=== PATIENT | male | born 1980 | race Caucasian/White ===

== ENCOUNTER 2018-06-06 04:57 | Emergency (ER) | payer OTHER ==
[2018-06-06] MEDS ORDERED: Lidocaine 1% PF 5 ML VIAL ONE (05:21)
[2018-06-06] MEDS ORDERED: Ketorolac Tromethamine 30 MG/ML VIAL ONE (05:21)
[2018-06-06] MEDS ORDERED: PHENYLEPHRINE HCL FS SCH (05:30)
[2018-06-06] MEDS ORDERED: SODIUM CHLORIDE 0.9% FS SCH (05:30)
[2018-06-06 06:27] LABS: #Eosinphils 0.2 thou/uL (0.0-0.7); #Monocytes 0.8 thou/uL (0.11-0.59); #Neutrophils 2.8 thou/uL (1.40-6.50); %Basophils 0.4 % (0.0-1.0); %Lymphocytes 34.4 % (21.0-51.0); %Monocytes 13.6 % (0.0-10.0); %Neutrophils 48.6 % (42.0-75.0); Hemoglobin 12.7 g/dL (14.0-18.0); Mean Corpuscular HGB CONC 33.8 g/dL (32.0-36.0); Mean Corpuscular Hemoglobin 30.9 pg (27.0-31.0); Mean Corpuscular Volume 91.2 fL (78.0-98.0); Mean Platelet Volume 7.3 fL (7.4-10.4); Platelet Count 311 thou/uL (130-400); RBC Distribution Width 14.4 % (11.5-14.5); Red Blood Cell (RBC) Count 4.11 mill/uL (4.70-6.10); White Blood Cell (WBC) Count 5.8 thou/uL (4.8-10.8)
[2018-06-06] MEDS ORDERED: CEFAZOLIN 1 GM VIAL ONE (06:46)
[2018-06-06 06:49] LABS: Acetaminophen Less than 6.0 mcg/mL (10.0-30.0); Alcohol Less than 10 mg/dL (Less than 10); Salicylate Less than 8.0 mg/dL (15.0-30.0)
[2018-06-06 06:50] LABS: ALT (SGPT) 29 U/L (8-55); AST (SGOT) 14 U/L (5-34); Albumin 3.7 g/dL (3.5-5.0); Alkaline Phosphatase 53 U/L (40-150); Anion Gap 12 mmol/L (10-20); BUN (Urea Nitrogen) 19 mg/dL (8.9-20.6); Bilirubin, Total 0.3 mg/dL (0.2-1.2); Calc. Creatinine Clearance 0 mL/min (70-130); Calcium 8.5 mg/dL (7.8-10.44); Carbon Dioxide 27 mmol/L (22-29); Chloride 105 mmol/L (98-107); Estimated GFR-MDRD Greater than 90; Globulin 2.9 g/dL (2.4-3.5); Glucose 101 mg/dL (70-105); Potassium 3.9 mmol/L (3.5-5.1); Protein, Total 6.6 g/dL (6.0-8.3); Sodium 140 mmol/L (136-145)
[2018-06-06 07:11] LABS: HBCM Index 0.07 S/CO (0-0.79); HBSAg Index 0.25 S/CO (0-0.99); HIV (1/2) Antibody/Antigen Non-Reactive (NonReactive); Hep A IgM AB Non-Reactive (NonReactive); Hep A IgM S/CO 0.07 S/CO (0-0.79); Hep B Surf Ag Non-Reactive S/CO (NonReactive); Hep C IgG Ab Non-Reactive (NonReactive); Hep C Index 0.05 S/CO (0-0.79); Hepatitis B Core IGM Abs Non-Reactive (NonReactive)
[2018-06-06 07:19] LABS: Syphilis Antibody Nonreactive (Nonreactive); Syphilis Antibody Index 0.04 S/CO (<1.00 Non-Reactive)
[2018-06-06 08:52] LABS: Bilirubin Negative (Negative); Blood, Urine Negative (Negative); Clarity CLEAR (Clear); Glucose, Urine (Dipstick) Negative (Negative); Leukocyte Negative (Negative); Nitrite Negative (Negative); Protein, Urine (Dipstick) Negative (Neg-Trace); Specific Gravity, Urine 1.031 (1.002-1.036); pH, Urine 6.5 (5.0-9.0)
[2018-06-06 09:21] LABS: Amphetamine Not Detected (NotDetected); Cocaine Metabolite Screen Not Detected (NotDetected); Medtox Reader # READER 4; Methamphetamine Not Detected (NotDetected); Opiate Screen Detected (NotDetected); Phencyclidine (PCP) Not Detected (NotDetected); THC/Cannabinoid Screen Detected (NotDetected)
[2018-06-06 09:22] LABS: Barbiturates Screen Not Detected (NotDetected); Benzodiazepine Screen Detected (NotDetected); Medtox Control Line Valid? VALID (VALID); Methadone Not Detected (NotDetected); Oxycodone Screen Not Detected (NotDetected); Tricyclic Screen Detected (NotDetected)
--- NOTE | 2018-06-06 11:59 | CON ---
DATE OF CONSULTATION: 06/06/2018 REASON FOR CONSULT: Recurrent priapism medication induced. HISTORY OF PRESENT ILLNESS: Mr. Esqueda is a 35-year-old male whom I seen back in 2014 as he was on trazodone for history of bipolar disease, and had a painful ischemic priapism. He underwent local aspiration irrigation with phenylephrine with successful detumescence and was discharged home. I did provide a followup appointment, however, he no showed. He states that since that event, trazodone has been discontinued; however, he is on Seroquel. With Seroquel, he has had 1 prior episode of priapism which was reduced at [facility] in [place]. He comes in this evening due to 5 hour history of ischemic priapism that began at 1 :00 a.m. He states that this was after he took Seroquel. He is currently unemployed, presents with his . Denies obstructive urinary symptoms. He has a remote history of methamphetamine use, which he denies current recreational drug use. He denies prior history of impotence, penile curvature. He has been fully informed regarding possibility of penile curvature, impotence due to history of priapism. PAST MEDICAL HISTORY: 1. Bipolar. 2. Hypertension. 3. GERD. PAST SURGICAL HISTORY: 1. Cholecystectomy. 2. Multiple irrigation aspiration of ischemic priapism drug induced :3 times. PSYCHIATRIC: Bipolar. SOCIAL HISTORY: History of methamphetamine use in the remote past, history of tobacco abuse 1 pack per day. HOME MEDICATIONS: Include Seroquel 200 mg, lorazepam, gabapentin, atorvastatin , lisinopril, hydrochlorothiazide and Depakote. ALLERGIES: No known drug allergies. SOCIAL HISTORY: As above. Lives with his . PHYSICAL EXAMINATION: VITAL SIGNS: Stable. He is afebrile, and there is no evidence of hypertension. Blood pressure is around 120/60. GENERAL: He is in no acute distress. HEENT: Grossly unremarkable. HEART: Regular rate. LUNGS: Clear. ABDOMEN: Soft, nontender, nondistended. GENITOURINARY: Demonstrates circumcised phallus, glans are soft. Rigid tumescence which is painful for the patient. 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 I did not see any other lesions on the shaft or the parameatal region. RECTAL: Digital rectal exam is deferred. BEDSIDE PROCEDURE: The patient was formally prepped and draped. He has been fully informed regarding indications of aspiration irrigation of his corpora due to ischemic priapism. Risks and complications including, but not limited to , bleeding, pain, infection, penile discomfort, recurrence of priapism, curvature, impotence reviewed. All questions answered to his satisfaction. He desired to proceed. The patient was provided Ancef IV at the bedside. The patient's penis was formally prepped and draped. Using an 18 gauge needle at the right lateral mid shaft avoiding any superficial veins. This was placed and dark venous blood was aspirated. There was some resistance evacuating the venous drainage; however, with manual pressure and irrigating with phenylephrine 500 microgram per mL we had successful detumescence. Approximately 3 mL was placed total. One mL increments were placed every 5-10 minutes. We were able to successfully obtain a successful detumescence. A:P drug induced priapism. Trazadone and seroquel are now contraindicated in this patient. He is informed to FU with his psych provider for alternative options. We will monitor the patient for a few hours to assess for recurrence. I do recommend the patient undergo a drug screen panel, CBC, STD panel including HIV, hepatitis, syphilis workup. 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 Please discharge the patient with antibiotics, Keflex 500 mg 1 p.o. t.i.d. for 4-5 days. MTDD
== END 2018-06-06 08:33 | disposition home or self-care (01) ==
LOC: ERS 04:57
DX: N48.30 Priapism, unspecified (principal); J45.909 Unspecified asthma, uncomplicated; K21.9 Gastro-esophageal reflux disease without esophagitis; I10 Essential (primary) hypertension; F31.9 Bipolar disorder, unspecified; F17.210 Nicotine dependence, cigarettes, uncomplicated; Z79.899 Other long term (current) drug therapy
CPT/HCPCS: 36415; 54220; 80053; 80074; 80306; 80307; 81003; 85025; 86780; 87086; 87389; 96361; 96374; 96375; J0690; J1885; J2001; J2370

== ENCOUNTER 2018-12-25 08:20 | Emergency (ER) | payer OTHER | END 2018-12-25 09:59 | disposition home or self-care (01) | LOC: ERS 08:20 | DX: L03.315 Cellulitis of perineum (principal); K21.9 Gastro-esophageal reflux disease without esophagitis; I10 Essential (primary) hypertension; F31.9 Bipolar disorder, unspecified; F17.210 Nicotine dependence, cigarettes, uncomplicated | CPT/HCPCS: 99283 ==

== ENCOUNTER 2020-08-27 19:30 | Outpatient (CLI) | payer OTHER | END 2020-08-27 19:31 | disposition home or self-care (01) | LOC: SLEEPLAB 19:30 | PROVIDERS: ATTEND Student in an Organized Health Care Education/Training Program | DX: G47.33 Obstructive sleep apnea (adult) (pediatric) (principal); R53.83 Other fatigue; K21.9 Gastro-esophageal reflux disease without esophagitis; G47.00 Insomnia, unspecified; I10 Essential (primary) hypertension; G47.10 Hypersomnia, unspecified; G47.31 Primary central sleep apnea | CPT/HCPCS: 95811 ==

== ENCOUNTER 2020-11-20 19:00 | Outpatient (CLI) | payer OTHER | END 2020-11-20 19:01 | disposition home or self-care (01) | LOC: SLEEPLAB 19:00 | PROVIDERS: ATTEND Student in an Organized Health Care Education/Training Program | DX: G47.33 Obstructive sleep apnea (adult) (pediatric) (principal); R53.83 Other fatigue; E66.9 Obesity, unspecified; G47.00 Insomnia, unspecified; K21.9 Gastro-esophageal reflux disease without esophagitis; I10 Essential (primary) hypertension | CPT/HCPCS: 95811 ==

== ENCOUNTER 2021-03-16 19:23 | Emergency (ER) | payer OTHER ==
[2021-03-16] MEDS ORDERED: Acetaminophen 500 MG TAB ONE ×2 (19:58→20:28)
[2021-03-16] MEDS ORDERED: Metoclopramide HCl 10 MG/2 ML VIAL ONE ×2 (19:59→20:28)
[2021-03-16] MEDS ORDERED: diphenhydrAMINE 50 MG/ML VIAL ONE ×2 (19:59→20:28)
[2021-03-16 20:24] LABS: #Basophils 0.1 thou/uL (0.0-0.2); #Eosinphils 0.2 thou/uL (0.0-0.7); #Monocytes 0.8 thou/uL (0.11-0.59); %Basophils 0.9 % (0.0-1.0); %Eosinophils 2.3 % (0.0-10.0); %Lymphocytes 32.9 % (21.0-51.0); %Monocytes 8.9 % (0.0-10.0); Hemoglobin 15.7 g/dL (14.0-18.0); Mean Corpuscular HGB CONC 33.7 g/dL (32.0-36.0); Mean Corpuscular Hemoglobin 29.9 pg (27.0-31.0); Mean Corpuscular Volume 88.8 fL (78.0-98.0); Mean Platelet Volume 7.3 fL (7.4-10.4); Platelet Count 252 thou/uL (130-400); RBC Distribution Width 13.5 % (11.5-14.5); Red Blood Cell (RBC) Count 5.25 mill/uL (4.70-6.10); White Blood Cell (WBC) Count 9.2 thou/uL (4.8-10.8)
[2021-03-16] MEDS ORDERED: Ketorolac Tromethamine 30 MG/ML VIAL ONE (20:28)
[2021-03-16 20:39] LABS: ALT (SGPT) 28 U/L (8-55); AST (SGOT) 18 U/L (5-34); Albumin 4.4 g/dL (3.5-5.0); Alkaline Phosphatase 91 U/L (40-110); Anion Gap 11 mmol/L (10-20); BUN (Urea Nitrogen) 14 mg/dL (8.9-20.6); Bilirubin, Total 0.2 mg/dL (0.2-1.2); Calc. Creatinine Clearance 0 mL/min (70-130); Calcium 9.4 mg/dL (7.8-10.44); Carbon Dioxide 30 mmol/L (22-29); Chloride 101 mmol/L (98-107); Globulin 3.8 g/dL (2.4-3.5); Glucose 90 mg/dL (70-105); Potassium 3.6 mmol/L (3.5-5.1); Protein, Total 8.2 g/dL (6.0-8.3); Sodium 138 mmol/L (136-145)
== END 2021-03-16 21:00 | disposition home or self-care (01) ==
LOC: ERS 19:23
DX: I10 Essential (primary) hypertension (principal); K21.9 Gastro-esophageal reflux disease without esophagitis; J45.909 Unspecified asthma, uncomplicated; F17.210 Nicotine dependence, cigarettes, uncomplicated
CPT/HCPCS: 70450; 80053; 84484; 85025; 93005; 96365; 96366; 96375; J1200; J1885; J2765